=== PATIENT | male | born 1985 | race Caucasian/White ===

== ENCOUNTER 2018-04-22 13:54 | Emergency (ER) | payer OTHER ==
[2018-04-22 14:56] VITALS: BP 149/79
--- NOTE | 2018-04-22 15:46 | ED Physician Documentation ---
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 Was not ill. It nipped at his face and he got a small lac/puncture of the chin. Bled mildly and then stopped. He cleaned it right away. His employer, the vet, told him to come get evaluated.), Not immunized Timing - onset: Today Timing - details: Abrupt onset, Now resolved (not bleeding now) Worsened by: Palpating Associated symptoms: No: Weakness, Numbness Similar symptoms before: Has not had sx before Review of Systems Constitutional: denies: Fever, Chills Ears: reports: Tinnitus/ringing (for several months without URI symptoms.) Nose: denies: Rhinorrhea / runny nose, Congestion Throat: denies: Sore throat Respiratory: denies: Cough Neurologic: denies: Focal weakness, Numbness PD PAST MEDICAL HISTORY - Past Medical History Cardiovascular: None Respiratory: None Neuro: None Endocrine/Autoimmune: None Psych: Anxiety - Present Medications Home Medications: Ambulatory Orders Medication Instructions Recorded Confirmed Amox/Clav 875/125 [Augmentin] 1 each PO Q12H #14 tablet 04/22/18 - Allergies Allergies/Adverse Reactions: Allergies Allergy/AdvReac Type Severity Reaction Status Date / Time codeine Allergy Hives Verified 04/22/18 14:05 - Social History Does the pt smoke?: No Smoking Status: Never smoker Does the pt drink ETOH?: No Does the pt have substance abuse?: No PD ED PE NORMAL - Vitals Vital signs reviewed: Yes - General General: Alert and oriented X 3, No acute distress, Well developed/nourished, Other (anxious) - HEENT HEENT: PERRL, Ears normal, Pharynx benign, Other (chin with small superficial lac, minimal puncture on chin, just few millimeters big. No bleeding nor FB. ) Results - Vitals Vitals: Oxygen O2 Source Room air PD MEDICAL DECISION MAKING - ED course Complexity details: considered differential (no indication for rabies vaccine given low endemicity here in reservoir hosts other than bats and that the dog is a pet and can be watched for 10-14 days. Low risk infection and he would prefer to not have abx unless signs of infection develop. ), d/w patient Departure - Departure Disposition: 01 Home, Self Care Clinical Impression: Dog bite of face Qualifiers: Encounter type: initial encounter Qualified Code(s): S01.85XA - Open bite of other part of head, initial encounter Condition: Stable Record reviewed to determine appropriate education?: Yes Instructions: ED Bite Dog Follow-Up: [facility] [place] [Provider Group] Prescriptions: Amox/Clav 875/125 [Augmentin] 1 each PO Q12H #14 tablet Comments: There is low incidence of rabies in this area in local animals and therefore in dogs and cats. There would not be need for rabies vaccine in this case. 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 The main concern from this would be a skin infection. If you develop any signs of redness swelling or purulence, then start the Augmentin antibiotic. Otherwise just local cleaning with soap and water is adequate. You can follow-up with the ENT group in [place] regarding your long-term tinnitus. Discharge Date/Time: 04/22/18 16:00
== END 2018-04-22 16:00 | disposition home or self-care (01) ==
LOC: ED 13:54
DX: S01.85XA Open bite of other part of head, initial encounter (principal); W54.0XXA Bitten by dog, initial encounter; Y92.89 Other specified places as the place of occurrence of the external cause; Y99.0 Civilian activity done for income or pay
CPT/HCPCS: 1040M; 99283

== ENCOUNTER 2018-09-21 11:42 | Emergency (ER) | payer OTHER ==
[2018-09-21 12:42] LABS: BILIRUBIN,URINE NEGATIVE (NEGATIVE); GLUCOSE, URINE (UA) NEGATIVE (NEGATIVE); KETONES,URINE (UA) NEGATIVE (NEGATIVE); LEUKOCYTE ESTERASE, URINE NEGATIVE (NEGATIVE); NITRITE,URINE NEGATIVE (NEGATIVE); OCCULT BLOOD,URINE NEGATIVE (NEGATIVE); PH,URINE 6.5 PH (5.0-7.5); PROTEIN,URINE NEGATIVE (NEGATIVE); UROBILINOGEN,URINE 0.2 (NORMAL) E.U./dL (NORMAL)
[2018-09-21 12:44] LABS: CLARITY,URINE CLEAR (CLEAR)
[2018-09-21 13:11] LABS: BASOPHILS % (AUTO) 0.3 %; EOSINOPHILS % (AUTO) 0.3 %; HGB - HEMOGLOBIN 15.7 g/dL (14.0-18.0); LYMPHOCYTES # (AUTO) 2.5 10^3/uL (1.5-3.5); LYMPHOCYTES % (AUTO) 36.2 %; MEAN CORPUSCULAR HEMOGLOBIN 30.5 pg (27.0-31.0); MEAN CORPUSCULAR HGB CONC 35.4 g/dL (32.0-36.0); MEAN CORPUSCULAR VOLUME 86.2 fL (80.0-94.0); MEAN PLATELET VOLUME 9.6 fL (7.4-11.4); MONOCYTES # (AUTO) 0.4 10^3/uL (0.0-1.0); MONOCYTES % (AUTO) 5.3 %; NEUTROPHILS # (AUTO) 3.9 10^3/uL (1.5-6.6); NEUTROPHILS % (AUTO) 57.6 %; PLT - PLATELET COUNT 295 10^3/uL (130-450); RED BLOOD COUNT 5.14 10^6/uL (4.70-6.10); RED CELL DISTRIBUTION WIDTH 11.7 % (12.0-15.0); WHITE BLOOD COUNT 6.8 x10^3/uL (4.8-10.8)
[2018-09-21 13:25] LABS: ALBUMIN 5.2 g/dL (3.2-5.5); ALBUMIN/GLOBULIN RATIO 1.4 (1.0-2.2); BILIRUBIN,TOTAL 1.3 mg/dL (0.2-1.0); CALCIUM 10.5 mg/dL (8.5-10.3); CREATININE 0.9 mg/dL (0.6-1.2); TOTAL PROTEIN 8.9 g/dL (6.7-8.2)
[2018-09-21] MEDS ORDERED: CETIRIZINE 10 MG TABLET PO STA (15:32)
--- NOTE | 2018-09-21 15:34 | ED Physician Documentation ---
History of Present Illness - Stated complaint Stated Complaint: FATIGUE - Chief complaint Chief Complaint: General - History obtained from History obtained from: Patient, Family - History of Present Illness Timing: How many weeks ago (2-3) Pain level max: 0 Pain level now: 0 - Additonal information Additional information: 32-year-old male states that he has been had increasing fatigue over the past few weeks. [place] Denies any fevers or chills. Has had some scratchy throat and nasal congestion. He just states that he has been more tired than usual. His partner states that he does not snore at night. He is not having any weight loss. No nausea or vomiting. Does not have any HIV risk factors. Nothing makes it better or worse Review of Systems Constitutional: denies: Fever, Chills GI: denies: Vomiting, Diarrhea Skin: denies: Rash Musculoskeletal: denies: Neck pain, Back pain Neurologic: denies: Focal weakness, Numbness, Headache PD PAST MEDICAL HISTORY - Past Medical History Past Medical History: Yes Cardiovascular: None Respiratory: None Neuro: None Endocrine/Autoimmune: None Psych: Anxiety - Present Medications Home Medications: Ambulatory Orders Medication Instructions Recorded Confirmed Amox/Clav 875/125 [Augmentin] 1 each PO Q12H #14 tablet 04/22/18 Cetirizine [ZyrTEC] 10 mg PO DAILY #14 tablet 09/21/18 - Allergies Allergies/Adverse Reactions: Allergies Allergy/AdvReac Type Severity Reaction Status Date / Time codeine Allergy Hives Verified 09/21/18 12:23 - Social History Does the pt smoke?: No Smoking Status: Never smoker Does the pt drink ETOH?: No Does the pt have substance abuse?: No PD ED PE NORMAL - Vitals Vital signs reviewed: Yes - General General: Alert and oriented X 3, No acute distress, Well developed/nourished - HEENT HEENT: PERRL, Ears normal, Moist mucous membranes, Pharynx benign - Neck Neck: Supple, no meningeal sign, No adenopathy - Cardiac Cardiac: RRR, Strong equal pulses - Respiratory Respiratory: No respiratory distress, Clear bilaterally - Abdomen Abdomen: Soft, Non tender, Non distended - Derm Derm: Warm and dry - Neuro Neuro: Alert and oriented X 3 - Psych Psych: Normal mood, Normal affect Results - Vitals Vitals: Vital Signs - 24 hr 09/21/18 09/21/18 12:19 15:43 Temperature 36.8 C Heart Rate 76 71 Respiratory 16 16 Rate Blood Pressure 131/78 H 136/81 H O2 Saturation 98 97 Oxygen O2 Source Room air - Labs Labs: Laboratory Tests 09/21/18 09/21/18 09/21/18 12:30 13:06 13:06 WBC 6.8 RBC 5.14 Hgb 15.7 Hct 44.3 MCV 86.2 MCH 30.5 MCHC 35.4 RDW 11.7 L Plt Count 295 MPV 9.6 Neut # (Auto) 3.9 Lymph # (Auto) 2.5 [place] # (Auto) 0.4 Eos # (Auto) 0.0 Baso # (Auto) 0.0 Absolute Nucleated RBC 0.00 Nucleated RBC % 0.0 Sodium 145 Potassium 4.5 Chloride 102 Carbon Dioxide 27 Anion Gap 16.0 H BUN 13 Creatinine 0.9 Estimated GFR (MDRD) 97 Glucose 99 Calcium 10.5 H Total Bilirubin 1.3 H AST 21 ALT 32 Alkaline Phosphatase 60 Total Protein 8.9 H Albumin 5.2 Globulin 3.7 Albumin/Globulin Ratio 1.4 Lipase 23 TSH Free T4 Urine Color LT. YELLOW Urine Clarity CLEAR Urine pH 6.5 Ur Specific [place] <=1.005 Urine Protein NEGATIVE Urine Glucose (UA) NEGATIVE Urine Ketones NEGATIVE Urine Occult Blood NEGATIVE Urine Nitrite NEGATIVE Urine Bilirubin NEGATIVE Urine Urobilinogen 0.2 (NORMAL) Ur Leukocyte Esterase NEGATIVE Ur Microscopic Review NOT INDICATED Urine Culture Comments NOT INDICATED 09/21/18 13:06 WBC RBC Hgb Hct MCV MCH MCHC RDW Plt Count MPV Neut # (Auto) Lymph # (Auto) [place] # (Auto) Eos # (Auto) Baso # (Auto) Absolute Nucleated RBC Nucleated RBC % Sodium Potassium Chloride Carbon Dioxide Anion Gap BUN Creatinine Estimated GFR (MDRD) Glucose Calcium Total Bilirubin AST ALT Alkaline Phosphatase Total Protein Albumin Globulin Albumin/Globulin Ratio Lipase TSH 1.31 Free T4 0.86 Urine Color Urine Clarity Urine pH Ur Specific [place] Urine Protein Urine Glucose (UA) Urine Ketones Urine Occult Blood Urine Nitrite Urine Bilirubin Urine Urobilinogen Ur Leukocyte Esterase Ur Microscopic Review Urine Culture Comments PD MEDICAL DECISION MAKING - ED course Complexity details: reviewed results, considered differential, d/w patient ED course: No acute laboratory findings to explain his symptoms. Unclear etiology of his symptoms. We will follow-up with his PCP for further care. Patient has a normal physical exam here. No emergency medical condition at this time. Patient counseled regarding signs and symptoms for which I believe and urgent re-evaluation would be necessary. Patient with good understanding of and agreement to plan and is comfortable going home at this time This document was made in part using voice recognition software. While efforts are made to proofread this document, sound alike and grammatical errors may occur. Departure - Departure Disposition: 01 Home, Self Care Clinical Impression: Fatigue Qualifiers: Fatigue type: unspecified Qualified Code(s): R53.83 - Other fatigue Condition: Good Instructions: Fatigue Manage, ED Weakness [facility] Follow-Up: Reid Jiménez MD [Primary Care Provider] - Within 1 week Prescriptions: Cetirizine [ZyrTEC] 10 mg PO DAILY #14 tablet Comments: We will trial you on Zyrtec to see if this helps your symptoms. Return if you worsen. Follow-up with your doctor for further care. Your thyroid testing should be done around 430 or 5 tonight. You can call after that for results. [phone]. Dr. Banks Discharge Date/Time: 09/21/18 15:42
[2018-09-21 15:43] VITALS: BP 136/81
[2018-09-21 16:07] LABS: THYROID STIMULATING HORMONE 1.31 uIU/mL (0.34-5.60)
[2018-09-21 16:09] LABS: FREE T4 (FREE THYROXINE) 0.86 ng/dL (0.58-1.64)
== END 2018-09-21 15:42 | disposition home or self-care (01) ==
LOC: ED 11:42
DX: R53.83 Other fatigue (principal)
CPT/HCPCS: 36415; 80053; 81001; 81003; 83690; 84439; 84443; 85025; 87086; 99283; 99284